=== PATIENT | female | born 1960 | race Caucasian/White ===

== ENCOUNTER 2018-08-07 14:26 | Emergency (ER) | payer SELFPAY ==
[2018-08-07 14:48] VITALS: BP 118/41; PULSE 52; RESP 16; TEMP 36.3; O2SAT 99
--- NOTE | 2018-08-07 14:57 | ED.GENADUL_ITS ---
Discharge Plan Disposition Patient Disposition: HOME Condition: Good Discharge Details Chief Complaint: Diabetes Clinical Impression: Medication refill Primary Care Provider: [facility],Local ED Provider: Landry Cano Home Meds and New Rx's Prescriptions: New Humalog U-100 Insulin 100 unit/mL solution 10 unit SC TID Qty: 10 RF: 3 No Action Humalog U-100 Insulin 100 unit/mL Cartridge RF: 0 Discharge Instructions Additional Instructions: Please use your insulin as directed. Please go and refill the prescription at the pharmacy as soon as possible. If you notice any worsening of your symptoms, or any new symptoms such as vomiting, diarrhea, fever, chills, shortness of breath, chest pain, numbness, weakness, or fainting , please return immediately to the emergency department for reevaluation. Please follow up with your primary care provider as soon as possible for reassessment and reevaluation. As always, it was a pleasure participating in your medical care today. Discharge Data Discharge Date/Time-TO BE ENTERED AT DEPARTURE: 08/07/18 15:07 Medical Decision Making This is a pleasant 57-year-old female from [place] who has type 1 diabetes and takes Humalog daily, and 10 unit increments 3 times per day in addition to Lantus. This morning she accidentally broke her insulin vial [place] Patient has all the other diabetes supplies she needs. She was given a prescription for Humalog, she denies any other complaints, vital signs are stable and reassuring. No evidence of hyper or hypoglycemia. Patient has no other requests at this time. The patient knows that the closest pharmacy is, and will get her prescription filled immediately. I have extensively reviewed the treatment plan and discharge instructions with the patient. I have addressed all patient concerns at this time. The patient was made aware of what symptoms to monitor for that would warrant a return to the emergency department. Discussed the plan with the patient, they demonstrate verbal understanding and agreement with our assessment and plan at this time. HPI General Date/Time Provider Initiated Documentation: 08/07/18 14:56 . HPI Narrative: This is a pleasant 57-year-old female from [place] who presents today for evaluation of insulin refill. He has a past medical history of type 1 diabetes, as well as a kidney transplant. She normally takes 30 units of Humalog per day and 3 doses of 10 units. She does take Lantus as well but has multiple refills of this. She states that she was at her hotel room when she accidentally broke her vial of insulin. He does not have her prescription or refill prescription from [facility] with her. And unlike [facility] she cannot chest abdomen and purchase insulin pharmacy. Patient's last dose of insulin was this morning. She denies any other complaints of nausea, vomiting, hyperglycemia, headedness, weakness, hypoglycemia, or other abnormalities. She has all of her other insulin supply. Related Data Home Medications Medication Instructions Recorded Confirmed insulin lispro [Humalog U-100 08/07/18 Insulin] insulin lispro [Humalog U-100 10 unit SC TID #10 ml 08/07/18 Insulin] Previous Rx's Medication Instructions Recorded insulin lispro [Humalog U-100 10 unit SC TID #10 ml 08/07/18 Insulin] Allergies Allergy/AdvReac Type Severity Reaction Status Date / Time morphine Allergy Unverified 08/07/18 14:51 General Stated Complaint: Diabetes SURINDER: 4 Review of Systems Review of Systems All systems reviewed & are unremarkable except as noted in HPI and below Exam Narrative Exam Narrative: 1.Const: Well-nourished, Well-developed, appearing stated age 2.Eyes: PERRL, no conjunctival injection, and symmetrical lids. 3.ENT: Atraumatic external nose and ears. Moist MM. Neck: Symmetric, trachea midline, No thyromegaly. 4.CVS: +S1/S2, No murmurs or gallops. Peripheral pulses 2+ and equal in all extremities. Brisk capillary refill in all extremities. 5.RESP: Unlabored respiratory effort. Clear to auscultation bilaterally. No wheezes rales or rhonchi 6.GI: Soft, Nontender/Nondistended, No hepatosplenomegaly. No guarding or rebound. Secondary transplant kidney is present on the anterior right lower abdomen 7.MSK: Normocephalic/Atraumatic, Extremities w/o deformity or ttp No cyanosis or clubbing, Normal movement of all extremities 8.Skin: Warm, Dry. No rashes or lesions. 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 Sensation grossly intact, no focal neurologic deficits. 10.Psych: (AAO) x3. Appropriate mood and affect Course Vital Signs Temperature 36.3 C L 08/07/18 14:48 Pulse 52 L 08/07/18 14:48 Respiratory Rate 16 08/07/18 14:48 Blood Pressure 118/41 L 08/07/18 14:48 Pulse Oximetry 99 08/07/18 14:48 Temperature 36.3 C L 08/07/18 14:48 Temperature Source Skin 08/07/18 14:48 Pulse 52 L 08/07/18 14:48 Respiratory Rate 16 08/07/18 14:48 Respiratory Effort Non-Labored 08/07/18 14:48 Blood Pressure 118/41 L 08/07/18 14:48 Blood Pressure Position Sitting 08/07/18 14:48 Pulse Oximetry 99 08/07/18 14:48 Oxygen Delivery Method Room Air 08/07/18 14:48 Oxygen Flow Rate 0 08/07/18 14:48 Pain Level 0 08/07/18 14:48
== END 2018-08-07 15:07 | disposition home or self-care (01) ==
LOC: ER 15:28
PROVIDERS: Emergency Provider Student in an Organized Health Care Education/Training Program
DX: E10.9 Type 1 diabetes mellitus without complications (principal); Z79.4 Long term (current) use of insulin
CPT/HCPCS: 99283